=== PATIENT | female | born 1960 | race Caucasian/White ===

== ENCOUNTER → 2017-05-25 | Outpatient (CLI) | payer OTHER ==
[~2017-05-25] MED LIST: ACIPHEX20 MG PO; MULTIVITAMIN FO1 CAP PO; PREMARIN0.45 MG PO; PROTONIX 40MG T40 MG PO; SYNTHROID0.075 MG/T PO; VESICARE 5MG5 MG PO; ZYRTEC 10MG10 MG PO
== END ==
LOC: MC.RAD 04-26 09:20
DX: Z12.31 Encounter for screening mammogram for malignant neoplasm of breast (principal)

== ENCOUNTER 2017-11-13 06:01 | Day surgery (SDC) | payer OTHER ==
[~2017-11-13] VITALS: Ht 162.6 cm; Wt 73.6 kg
[2017-11-13] MEDS ORDERED: DHEA 10 MG TAB1 EACH PO (06:26)
[2017-11-13] MEDS ORDERED: OMEGA-3 1000 MG1 CAP PO (06:28)
[2017-11-13] MEDS ORDERED: CRANBERRY/D-MANNOSE PO (06:28)
[2017-11-13] MEDS ORDERED: [UNRECOGNIZED DRUG - OTHER] PO (06:29)
[2017-11-13 06:48] VITALS: BP 126/79; PULSE 70; TEMP 97.7
[2017-11-13 08:47] VITALS: BP 110/62; PULSE 69; TEMP 97.5
[2017-11-13 09:02] VITALS: BP 103/70; PULSE 75
[2017-11-13 09:17] VITALS: BP 119/83; PULSE 71
[2017-11-13 09:32] VITALS: BP 113/77; PULSE 67
[2017-11-13 10:02] VITALS: BP 106/85; PULSE 66
== END 2017-11-13 10:40 | disposition home or self-care (01) ==
LOC: SDCO 06:01
DX: L73.2 Hidradenitis suppurativa (principal); E03.9 Hypothyroidism, unspecified; E04.2 Nontoxic multinodular goiter; K21.9 Gastro-esophageal reflux disease without esophagitis; G47.9 Sleep disorder, unspecified; Z90.710 Acquired absence of both cervix and uterus; Z82.49 Family history of ischemic heart disease and other diseases of the circulatory system
CPT/HCPCS: J1100; J1885; J2250; J2405; J2704; J2795; J3010; J7120

== ENCOUNTER → 2020-03-15 | Outpatient (CLI) | payer OTHER ==
[~2020-03-15] MED LIST changes: +CRANBERRY/D-MANNOSE PO; +DHEA 10 MG TAB1 EACH PO; +OMEGA-3 1000 MG1 CAP PO; +[UNRECOGNIZED DRUG - OTHER] PO
== END ==
LOC: MC.RAD 08:08
DX: Z12.31 Encounter for screening mammogram for malignant neoplasm of breast (principal)

== ENCOUNTER → 2021-01-28 | Outpatient (CLI) | payer BC | LOC: COL.RAD 09:24 | DX: R10.32 Left lower quadrant pain (principal) ==

== ENCOUNTER → 2021-03-14 | Outpatient (CLI) | payer BC | LOC: COL.RAD 07:09 | DX: N32.89 Other specified disorders of bladder (principal); R14.0 Abdominal distension (gaseous) | CPT/HCPCS: Q9967 ==